=== PATIENT | female | born 1940 | race African-American/Black ===

== ENCOUNTER 2019-10-30 02:20 | Emergency (ER) | payer MEDICAID, MEDICARE ==
--- NOTE | 2019-10-30 02:42 | PHYS DOC ---
Past Medical History Past Medical History: Hypertension Smoking: Cigarettes Adult General Chief Complaint Chief Complaint: HYPERTENSION HPI HPI Patient is a 79 year old female with history of hypertension who presents with remaining of elevated blood pressure. Patient's son states he checked her blood pressure after the return from [facility] and her blood pressure was 180/102 and decided to bring her to ER. Patient denies headache, chest pain, shortness of breath, blurred vision, nausea and vomiting, focal neuro deficit. Patient states she was cold when she came from [facility] and her blood pressure was elevated. Patient had blood pressure of 179/99 at arrival to ER. Review of Systems Review of Systems Constitutional: Denies fever or chills [] Eyes: Denies change in visual acuity, redness, or eye pain [] HENT: Denies nasal congestion or sore throat [] Respiratory: Denies cough or shortness of breath [] Cardiovascular: No additional information not addressed in HPI [] GI: Denies abdominal pain, nausea, vomiting, bloody stools or diarrhea [] : Denies dysuria or hematuria [] Musculoskeletal: Denies back pain or joint pain [] Integument: Denies rash or skin lesions [] Neurologic: Denies headache, focal weakness or sensory changes [] Endocrine: Denies polyuria or polydipsia [] All other systems were reviewed and found to be within normal limits, except as documented in this note. Physical Exam Physical Exam Constitutional: Well developed, well nourished, no acute distress, non-toxic appearance. [] HENT: Normocephalic, atraumatic. Eyes: PERRLA, EOMI, conjunctiva normal, no discharge. [] Neck: Normal range of motion, no tenderness, supple, no stridor. [] Cardiovascular:Heart rate regular rhythm, no murmur [] Lungs & Thorax: Bilateral breath sounds clear to auscultation [] Abdomen: Bowel sounds normal, soft, no tenderness, no masses, no pulsatile masses. [] Skin: Warm, dry, no erythema, no rash. [] Back: No tenderness, no CVA tenderness. [] Extremities: No tenderness, no cyanosis, no clubbing, ROM intact, no edema. [] Neurologic: Alert and oriented X 3, no focal deficits noted. [] Psychologic: Affect normal, mood normal. [] EKG EKG [] Radiology/Procedures Radiology/Procedures [] Course & Med Decision Making Course & Med Decision Making Evaluation of patient in ER showed 79-year-old female patient with history of hypertension brought in by her son because of blood pressure of 180/102. Patient had blood pressure of 179/99 that decreased to 169/99. Patient was advised to continue her home medication and follow up with her primary care physician and quit smoking. Dragon Disclaimer Dragon Disclaimer This electronic medical record was generated, in whole or in part, using a voice recognition dictation system. Departure Departure Impression: Primary Impression: Hypertension, accelerated Additional Impressions: Tobacco abuse Tobacco abuse counseling Disposition: HOME, SELF-CARE (at [id number]) Condition: IMPROVED Patient Instructions: Form - Blood Pressure Record Sheet, How to Take Your Blood Pressure, [id number], Managing Your High Blood Pressure, Smoking Cessation, Tips For Success Additional Instructions: Continue current medication Follow-up with your primary care physician in 3-5 days Return to ER if not getting better Problem Qualifiers NAYELI GARCIA MD Oct 30, 2019 02:42
[2019-10-30 02:50] VITALS: BP 170/95
== END 2019-10-30 02:54 | disposition home or self-care (01) ==
LOC: ER 02:20
DX: I10 Essential (primary) hypertension (principal); F17.210 Nicotine dependence, cigarettes, uncomplicated; Z71.6 Tobacco abuse counseling
CPT/HCPCS: 99283